=== PATIENT | male | born 1960 | race Two or more races ===

== ENCOUNTER 2024-11-14 11:26 | Emergency (ER) | payer BC, MEDICAID ==
[~2024-11-14] VITALS: Ht 172.7 cm; Wt 86.2 kg
[2024-11-14 11:41] VITALS: TEMP 98
[2024-11-14 11:59] LABS: PLATELET COUNT (AUTO) 154 K/uL (150-450); RED BLOOD CELL COUNT(AUTO) 4.69 MIL/uL (4.5-6.0); RED CELL DISTRIBUTION WIDTH 13.3 % (11.5-15.0); WHITE BLOOD COUNT (AUTO) 6.5 K/uL (4.3-11.0)
[2024-11-14 12:01] LABS: APPEARANCE,URINE CLOUDY (CLEAR); BLOOD, URINE Large Ery/uL (NEGATIVE); LEUKOCYTE ESTERASE ,URINE Large (NEGATIVE); UGLUCOSE Negative (NEGATIVE)
[2024-11-14 12:06] LABS: CALCIUM, SERUM 9.2 mg/dL (8.5-10.1); CREATININE 1.0 mg/dL (0.6-1.3); SODIUM SERUM 141.0 mmol/L (136-145); UREA NITROGEN, BLOOD 17.0 mg/dL (7-18)
[2024-11-14 12:07] LABS: NITRITE, URINE NEGATIVE (NEGATIVE)
[2024-11-14 12:11] LABS: ASPARTATE AMINOTRANSFERASE 17.0 U/L (15-37); TOTAL PROTEIN, SERUM 8.4 g/dL (6.4-8.2)
[2024-11-14 12:16] LABS: ADD URINE CULTURE YES
[2024-11-14] MEDS ORDERED: CIPROFLOXACIN HCL 500 MG TABLET ONE (12:56)
[2024-11-14] MEDS: CIPROFLOXACIN HCL 500 MG TABLET PO ONE (13:00)
[2024-11-14] MEDS ORDERED: CIPR-262 PO (13:43)
[2024-11-14 14:01] VITALS: BP 130/85; O2SAT 97
== END 2024-11-14 13:54 | disposition home or self-care (01) ==
LOC: ER 11:32
DX: N39.0 Urinary tract infection, site not specified (principal); N40.0 Benign prostatic hyperplasia without lower urinary tract symptoms; R06.02 Shortness of breath; Z86.718 Personal history of other venous thrombosis and embolism
CPT/HCPCS: 36415; 80048-TC; 80076-TC; 81001; 83690-TC; 83880; 85025-TC; 87086-TC; 87186-TC